=== PATIENT | male | born 1995 | race African-American/Black ===

== ENCOUNTER 2021-06-27 04:59 | Inpatient (IN) | payer OTHER ==
[~2021-06-27] VITALS: Ht 198.1 cm; Wt 72.7 kg
[2021-06-27] VITALS (12 sets, daily range): BP systolic 107–159; BP diastolic 62–92
[2021-06-27 05:44] LABS: ARTERIAL BLOOD GAS PO2 143.4 (80-90)
[2021-06-27 05:46] LABS: ABG BASE EXCESS -26.9 mmol/L (-2.0-2.0)
[2021-06-27 05:48] LABS: ARTERIAL BLOOD GAS PH 6.998 (7.35-7.45)
[2021-06-27 06:14] LABS: BASO # 0.1 10*3/uL (0.0-0.1); BASO % 0.4 % (0.0-1.0); EOS % 0.1 % (1.0-4.0); HEMATOCRIT 48.6 % (42.0-52.0); LYMPH # 2.8 10*3/uL (1.3-4.4); LYMPH % 19.6 % (27.0-41.0); MEAN CELL VOLUME 103.2 fl (80.0-94.0); MEAN CORPUSCULAR HGB 33.3 pg (27.0-31.0); MEAN CORPUSCULAR HGB CONC 32.3 g/dl (33.0-37.0); MEAN PLATELET VOLUME 10.6 fl (9.6-12.3); MONO # 0.7 10*3/uL (0.1-1.0); MONO % 4.7 % (3.0-9.0); NEUT # 10.4 10*3/uL (2.3-7.9); NEUT % 73.8 % (47.0-73.0); PLATELET COUNT AUTOMATED 352 10*3/uL (130-400); RED BLOOD COUNT 4.71 10*6/uL (4.50-5.90); RED CELL DISTRI WIDTH 12.6 % (0-14.5); WHITE BLOOD COUNT 14.1 10*3/uL (4.8-10.8)
[2021-06-27 06:35] LABS: ALBUMIN 3.8 gm/dl (3.1-4.5); BUN 26 mg/dl (7-24); CHLORIDE 93 mmol/L (98-107); CREATININE 1.61 mg/dL (0.70-1.30); POTASSIUM 5.5 mmol/L (3.5-5.1); SGOT/AST 33 IU/L (3-35); SGPT/ALT 91 U/L (12-78); SODIUM 127 mmol/L (136-145); TOTAL PROTEIN 7.9 gm/dL (6.4-8.2)
[2021-06-27 06:36] LABS: ALKALINE PHOSPHATASE 124 U/L (45-117)
[2021-06-27 07:10] LABS: BILIRUBIN Negative (Negative); BLOOD Trace-Lysed (Negative); CLARITY Clear (Clear); COLOR Yellow (Yellow); GLUCOSE 3+ (Negative); KETONE 4+ (Negative); LEUKO ESTERASE Negative (Negative); NITRITE Negative (Negative); SPECIFIC GRAVITY 1.025 (1.001-1.030); UROBILINOGEN 0.2 E.U./dl (0.0-1.0)
[2021-06-27 07:35] LABS: BACTERIA 1+; EPITHELIAL CELLS 16-20
[2021-06-27 08:32] LABS: ARTERIAL BLOOD GAS PO2 141.2 (80-90)
[2021-06-27 08:35] LABS: ABG BASE EXCESS -26.7 mmol/L (-2.0-2.0); ARTERIAL BLOOD GAS PH 7.006 (7.35-7.45)
[2021-06-27] MEDS ORDERED: HUMALOG100 UNIT/2 SQ (09:28)
[2021-06-27 10:26] LABS: CREATININE 1.76 mg/dL (0.70-1.30); POTASSIUM 5.8 mmol/L (3.5-5.1)
[2021-06-27] MEDS ORDERED: TRESIBA100 UNIT/1 SQ (11:17)
[2021-06-27 13:40] LABS: BUN 26 mg/dl (7-24); CHLORIDE 108 mmol/L (98-107); CREATININE 1.36 mg/dL (0.70-1.30); POTASSIUM 4.9 mmol/L (3.5-5.1); SODIUM 138 mmol/L (136-145)
[2021-06-27 16:37] LABS: BUN 20 mg/dl (7-24); CHLORIDE 115 mmol/L (98-107); CREATININE 1.09 mg/dL (0.70-1.30); POTASSIUM 4.3 mmol/L (3.5-5.1); SODIUM 140 mmol/L (136-145)
[2021-06-27 19:28] LABS: BUN 17 mg/dl (7-24); CHLORIDE 116 mmol/L (98-107); CREATININE 1.09 mg/dL (0.70-1.30); SODIUM 141 mmol/L (136-145)
[2021-06-28] VITALS: BP 109/62
[2021-06-28 01:31] LABS: CHLORIDE 111 mmol/L (98-107); SODIUM 136 mmol/L (136-145)
[2021-06-28 01:35] LABS: BUN 16 mg/dl (7-24)
[2021-06-28 01:48] LABS: POTASSIUM 4.2 mmol/L (3.5-5.1)
[2021-06-28 04:00] VITALS: BP 113/69
[2021-06-28 04:56] LABS: BASO % 0.1 % (0.0-1.0); EOS % 0.3 % (1.0-4.0); HEMATOCRIT 42.3 % (42.0-52.0); LYMPH # 1.4 10*3/uL (1.3-4.4); LYMPH % 19.5 % (27.0-41.0); MEAN CORPUSCULAR HGB 33.3 pg (27.0-31.0); MEAN PLATELET VOLUME 10.5 fl (9.6-12.3); MONO # 0.6 10*3/uL (0.1-1.0); MONO % 8.2 % (3.0-9.0); NEUT # 5.3 10*3/uL (2.3-7.9); NEUT % 71.8 % (47.0-73.0); RED BLOOD COUNT 4.45 10*6/uL (4.50-5.90); RED CELL DISTRI WIDTH 12.5 % (0-14.5); WHITE BLOOD COUNT 7.3 10*3/uL (4.8-10.8)
[2021-06-28 04:57] LABS: MEAN CELL VOLUME 95.1 fl (80.0-94.0); PLATELET COUNT AUTOMATED 226 10*3/uL (130-400)
[2021-06-28 05:08] LABS: BUN 15 mg/dl (7-24); CHLORIDE 111 mmol/L (98-107); CHOLESTEROL 138 mg/dL (<200); CREATININE 1.08 mg/dL (0.70-1.30); POTASSIUM 3.9 mmol/L (3.5-5.1); SGOT/AST 22 IU/L (3-35); SGPT/ALT 66 U/L (12-78); SODIUM 137 mmol/L (136-145); TOTAL PROTEIN 6.7 gm/dL (6.4-8.2); TRIGLYCERIDES 199 mg/dl (<150)
[2021-06-28 05:09] LABS: ALKALINE PHOSPHATASE 75 U/L (45-117); LDL CHOLESTEROL 42 mg/dL (9-159)
[2021-06-28 05:15] LABS: FREE T4 0.63 ng/dl (0.76-1.46)
[2021-06-28 08:00] VITALS: BP 119/73
[2021-06-28 12:00] VITALS: BP 100/65
[2021-06-28] MEDS ORDERED: HUMALOG100 UNIT/2 SQ (13:57)
[2021-06-28] MEDS ORDERED: TRESIBA100 UNIT/1 SQ (13:57)
== END 2021-06-28 16:05 | disposition home or self-care (01) | DRG 637 ==
LOC: ED 04:59 → EDHOLD 07:50 → ICCU 07:50
PROVIDERS: Emergency Medicine; Student in an Organized Health Care Education/Training Program; ADMIT Family Medicine; ATTEND Family Medicine
DX: E10.11 Type 1 diabetes mellitus with ketoacidosis with coma (principal); N17.0 Acute kidney failure with tubular necrosis; R65.11 Systemic inflammatory response syndrome (SIRS) of non-infectious origin with acute organ dysfunction; E87.1 Hypo-osmolality and hyponatremia; Z20.822 Contact with and (suspected) exposure to COVID-19; E87.5 Hyperkalemia; E87.8 Other disorders of electrolyte and fluid balance, not elsewhere classified; R73.9 Hyperglycemia, unspecified; E83.39 Other disorders of phosphorus metabolism; R74.01 Elevation of levels of liver transaminase levels; Z79.4 Long term (current) use of insulin